=== PATIENT | male | born 1965 | race Caucasian/White ===

== ENCOUNTER 2016-12-30 05:35 | Day surgery (SDC) | payer BC ==
[~2016-12-30 05:35] MED LIST: NO MEDICATIONS
== END 2016-12-30 14:55 ==
LOC: SRG 05:35 → SHSB 05:38 → ORW 07:17 → PACU 08:34 → SHSB 09:10
PROC: 06BY0ZC Excision of Hemorrhoidal Plexus, Open Approach (ICD-10-PCS; principal; 2016-12-30)
DX: K64.2 Third degree hemorrhoids (principal); M19.90 Unspecified osteoarthritis, unspecified site; F41.9 Anxiety disorder, unspecified; J40 Bronchitis, not specified as acute or chronic; F17.210 Nicotine dependence, cigarettes, uncomplicated; Z98.1 Arthrodesis status; Z98.890 Other specified postprocedural states
CPT/HCPCS: J2765